=== PATIENT | male | born 1960 | race American Indian/Alaskan Native ===

== ENCOUNTER 2018-09-08 10:40 | Day surgery (SDC) | payer OTHER ==
[2018-09-08] MEDS ORDERED: NACL 0.9% 1000 ML 1,000 ML IV SCH (11:00)
== END 2018-09-08 10:41 | disposition home or self-care (01) ==
LOC: GIO 10:40
DX: Z12.11 Encounter for screening for malignant neoplasm of colon (principal); Z88.8 Allergy status to other drugs, medicaments and biological substances; Z53.8 Procedure and treatment not carried out for other reasons